=== PATIENT | female | born 1940 | race Caucasian/White ===

== ENCOUNTER 2018-10-04 06:50 | Day surgery (SDC) | payer MEDICARE, BC ==
[2018-10-04] MEDS ORDERED: FENTANYL PF 100MCG/2ML VIAL IV ONE (06:51)
[2018-10-04] MEDS ORDERED: PROPOFOL 10 MG/ML VIAL IV ONE (06:51)
[2018-10-04] MEDS ORDERED: HYDROCODONE/APAP 7.5/325MG TABLET PO ONE (06:51)
[2018-10-04] MEDS ORDERED: LIDOCAINE 2% MDV (20MG/ML) 20ML VIAL IV ONE (06:51)
[2018-10-04] MEDS ORDERED: LIDOCAINE 1% W/EPI 1:200,000 MPF 30ML SQ ONE (06:51)
[2018-10-04] MEDS ORDERED: BUPIVACAINE 0.5% W/EPI MPF 30 ML VIAL IVP ONE (06:51)
[2018-10-04] MEDS ORDERED: DEXAMETHASONE PRESERVATIVE FREE 10MG/ML VIAL IV ONE (06:51)
[2018-10-04] MEDS ORDERED: MIDAZOLAM HCL 2MG/2ML VIAL IV ONE (06:51)
--- NOTE | 2018-10-04 17:46 | Operative Note - [place] ---
DATE OF SURGERY: 10/04/18 PREOPERATIVE DIAGNOSIS: CERVICAL SPONDYLOSIS WITHOUT MYELOPATHY, ICD-10 CODE = M47.812. OPERATION: RADIOFREQUENCY RHIZOTOMY BILATERAL CERVICAL FACETS 2-3, 3-4 , and 4-5. SURGEON: MARTÍN JIM D.O. ANESTHESIA: LOCAL WITH SEDATION ANESTHESIA PROVIDER: ZACK RUEDA CRNA INDICATION: This patient presents with pain, which is head and neck. Diagnostics show extensive multiple levels of spondylosis. A facet series to the above levels 75% pain control. Due to the failure of therapies and the success of the facet series, the patient is here for rhizotomy for more long- term relief. PROCEDURE: Intravenous line, vital sign monitoring, IV sedation, prepped, draped, sterile technique. Facet levels cervical spine at 2-3, 3-4, and 4-5 marked bilateral, skin infiltrated, and a 20-gauge rhizotomy cannula positioned. Stimulation trials conducted. Rhizotomy burn performed. Local with anti-inflammatory into the sites. Topical antibiotics. Sterile dressing applied. We will monitor and evaluate. cc: Dr. Marie Jean JOB NUMBER: [id number] MTDD
== END 2018-10-04 09:45 | disposition home or self-care (01) ==
LOC: SUR 06:50
PROVIDERS: ATTEND Pain Medicine Interventional Pain Medicine
DX: M47.812 Spondylosis without myelopathy or radiculopathy, cervical region (principal); I10 Essential (primary) hypertension; E78.00 Pure hypercholesterolemia, unspecified; G25.81 Restless legs syndrome; K44.9 Diaphragmatic hernia without obstruction or gangrene; N28.9 Disorder of kidney and ureter, unspecified
CPT/HCPCS: 64633; 64634 ×2; 01936; J1100; J3010